=== PATIENT | female | born 1970 ===

== ENCOUNTER 2020-09-23 22:56 | Inpatient (IN) ==
[2020-09-23] MEDS ORDERED: cefTRIAXone 2 GM ADDV.VIAL 2 GM in NS 0.9% 100 ml BAG 100 ML IVPB ONE (23:54)
[2020-09-23] MEDS ORDERED: Lactated Ringers 1000 ml BAG IV.FLUID IV ONE (23:54)
[2020-09-24 00:12] LABS: Hematocrit 32 % (35-47); Hemoglobin 10.8 g/dL (12.0-16.0); Mean Corpuscular HGB Conc 34 g/dL (31-36); Mean Corpuscular Hemoglobin 30 pg (27-31); Mean Corpuscular Volume 89 fL (80-97); Mean Platelet Volume 7.5 fL (7.4-10.4); Platelet Count 493 10^3/uL (150-450); Red Blood Count 3.57 10^6 /uL (3.70-4.87); Red Cell Distribution Width 13 % (10-15); White Blood Count 27.2 10^3/uL (3.5-10.8)
[2020-09-24 00:23] LABS: INR 1.17 (0.86-1.15)
[2020-09-24 00:36] LABS: ALT 19 U/L (7-52); AST 17 U/L (13-39); Activated Partial Thrombo Time 20.2 seconds (26.0-38.0); Albumin 2.8 g/dL (3.2-5.2); Albumin/Globulin Ratio 0.6 (1-3); Alkaline Phosphatase 194 U/L (35-149); Anion Gap 10 mmol/L (2-11); Blood Urea Nitrogen 35 mg/dL (6-24); C Reactive Protein 336.87 mg/L (<8.01); CO2 Carbon Dioxide 22 mmol/L (22-32); Calcium 8.4 mg/dL (8.6-10.3); Chloride 92 mmol/L (101-111); EGFR African American 32.2 (>60); EGFR Non-African American 26.6 (>60); Globulin 4.5 g/dL (2-4); Glucose 346 mg/dL (70-100); Potassium 3.6 mmol/L (3.5-5.0); Sodium 124 mmol/L (135-145); Total Protein 7.3 g/dL (6.4-8.9)
[2020-09-24 00:44] LABS: Troponin I 0.05 ng/mL (<0.03)
[2020-09-24 01:23] LABS: Erythrocyte Sed Rate > 120 mm/Hr (0-19)
[2020-09-24 01:40] LABS: ABS Basophils 0.2 10^3/ul (0-0.2); ABS Eosinophils 0.1 10^3/ul (0-0.6); ABS Monocytes 1.7 10^3/ul (0-0.8); ABS Neutrophils 24.2 10^3/ul (1.5-7.7); Eosinophil % 0.4 %; Lymphocyte % 3.8 %
[2020-09-24] MEDS ORDERED: Vancomycin 1,250 MG in NS 0.9% 250 ml 250 ML IVPB ONE ×2 (05:40→12:30)
[2020-09-24] MEDS ORDERED: Vancomycin per Pharmacy 1 EA NOTE FOLLOW UP SCH (06:00)
[2020-09-24] MEDS ORDERED: Enoxaparin 40 MG/0.4 ML SYR SUBCUT SCH (06:00)
[2020-09-24] MEDS ORDERED: Heparin 5000 UNITS/ML 1 mL VIAL IV ONE (06:01)
[2020-09-24] MEDS ORDERED: Dextrose 50% Syringe 50 ml 25 GM/50 ML SYRINGE IV PUSH PRN (06:05)
[2020-09-24] MEDS ORDERED: Cefepime 2 GM IV - ED ONCE IV ONE (06:15)
[2020-09-24 06:55] LABS: Urine Appearance Cloudy; Urine Bilirubin Negative (Negative); Urine Blood 3+ (Negative); Urine Color Yellow; Urine Glucose 1+(50 mg/dL) (Negative); Urine Ketones Negative (Negative); Urine Nitrite Negative (Negative); Urine Protein Negative (Negative); Urine Specific Gravity 1.005 (1.002-1.030); Urine Urobilinogen Negative (Negative)
[2020-09-24 06:59] LABS: Urine Bacteria 1+ (Absent); Urine Red Blood Cell 2+(6-10/hpf) (Absent); Urine Squamous Epithelial Cell Present (Absent); Urine White Blood Cell 3+(>20/hpf) (Absent)
[2020-09-24] MEDS ORDERED: NS 0.9% 1000 ml BAG 1,000 ML IV SCH (07:30)
[2020-09-24 08:26] LABS: Blood Urea Nitrogen 22 mg/dL (6-24); CO2 Carbon Dioxide 18 mmol/L (22-32); Chloride 104 mmol/L (101-111); Potassium 2.8 mmol/L (3.5-5.0)
[2020-09-24 08:37] LABS: Troponin I 0.11 ng/mL (<0.03)
[2020-09-24 08:49] LABS: EGFR African American 31.6 (>60); EGFR Non-African American 26.1 (>60)
[2020-09-24 09:00] LABS: Sodium 104 mmol/L (135-145)
[2020-09-24] MEDS ORDERED: metroNIDAZOLE IV 500 MG/100ML 500 MG/100 ML BAG IVPB SCH (09:00)
[2020-09-24 09:01] LABS: Calcium 6.2 mg/dL (8.6-10.3)
[2020-09-24 09:05] LABS: Glucose 944 mg/dL (70-100)
[2020-09-24 09:32] LABS: Hematocrit 33 % (35-47); Hemoglobin 10.9 g/dL (12.0-16.0); Mean Corpuscular HGB Conc 33 g/dL (31-36); Mean Corpuscular Hemoglobin 30 pg (27-31); Mean Corpuscular Volume 90 fL (80-97); Mean Platelet Volume 7.2 fL (7.4-10.4); Platelet Count 508 10^3/uL (150-450); Red Blood Count 3.66 10^6 /uL (3.70-4.87); Red Cell Distribution Width 13 % (10-15); White Blood Count 20.5 10^3/uL (3.5-10.8)
[2020-09-24 09:50] LABS: Calcium 8.1 mg/dL (8.6-10.3); EGFR African American 53.4 (>60); EGFR Non-African American 44.1 (>60); Potassium 3.4 mmol/L (3.5-5.0)
[2020-09-24] MEDS ORDERED: NS 0.9% 1000 ml BAG 1,000 ML IV ONE (10:22)
[2020-09-24] MEDS: Morphine 2 MG/ML SYRINGE IV PRN (11:11)
[2020-09-24] MEDS: Clindamycin 600 MG/D5W BAG 600 MG/50 ML BAG IV SCH (11:13)
[2020-09-24] MEDS ORDERED: Naloxone 0.4 mg VIAL 0.4 mg/ml 1 ml VIAL IV PRN ×3 (12:20→16:20)
[2020-09-24] MEDS ORDERED: DiMENhydriNATE IV 50 mg/ml 1 ml VIAL IV PUSH PRN ×3 (12:20→16:20)
[2020-09-24] MEDS ORDERED: fentaNYL 100 mcg/2 ml 50 MCG/ML VIAL IV PRN ×2 (12:20→16:20)
[2020-09-24] MEDS ORDERED: Succinylcholine 200 mg VIAL 20 mg/ml 10 ml VIAL (200 mg) ONE (12:26)
[2020-09-24] MEDS ORDERED: Lidocaine 2% PF 5 ML VIAL ONE (12:26)
[2020-09-24] MEDS ORDERED: Midazolam 2 mg/2 ml VIAL 1 mg/ml 2 ml VIAL (2 mg) ONE (12:26)
[2020-09-24] MEDS ORDERED: fentaNYL 100 mcg/2 ml 50 MCG/ML VIAL ONE ×3 (12:26→15:51)
[2020-09-24] MEDS ORDERED: Propofol 10 MG/ML 20 ML BTL ONE (12:26)
[2020-09-24] MEDS ORDERED: Etomidate 20 mg/10 ml 2 MG/ML 10 ml VIAL ONE (12:28)
[2020-09-24] MEDS ORDERED: Dakins Solution 0.125% (1/4 STRENGTH) 473 ML BTL ONE (14:05)
[2020-09-24] MEDS ORDERED: Phenylephrine 40 mcg/mL 10mL (400mcg) SYRINGE ONE ×3 (14:07→14:58)
[2020-09-24] MEDS ORDERED: Ondansetron 4 mg VIAL 2 MG/ML 2 ml VIAL ONE ×2 (14:27→16:52)
[2020-09-24] MEDS ORDERED: Dexamethasone IV 4 MG/ML VIAL 1 ml VIAL ONE (14:27)
[2020-09-24] MEDS ORDERED: Bupivacaine 0.5% SDV PF 30ML VIAL ONE (15:02)
[2020-09-24] MEDS ORDERED: Lidocaine 2% PF 10 ML AMP ONE (15:02)
[2020-09-24] MEDS: fentaNYL 100 mcg/2 ml 50 MCG/ML VIAL IV PRN ×7 (15:31→16:50)
[2020-09-24] MEDS ORDERED: Acetaminophen IV 1 GM/100ML 100 ML IV ONE ×2 (16:15→16:23)
[2020-09-24] MEDS ORDERED: fentaNYL 100 mcg/2 ml 50 MCG/ML VIAL IV SLOW PU PRN (16:22)
[2020-09-24 16:48] LABS: Hematocrit 29 % (35-47); Hemoglobin 9.6 g/dL (12.0-16.0); Mean Corpuscular HGB Conc 33 g/dL (31-36); Mean Corpuscular Hemoglobin 30 pg (27-31); Mean Corpuscular Volume 89 fL (80-97); Mean Platelet Volume 7.5 fL (7.4-10.4); Platelet Count 440 10^3/uL (150-450); Red Blood Count 3.22 10^6 /uL (3.70-4.87); Red Cell Distribution Width 13 % (10-15); White Blood Count 20.6 10^3/uL (3.5-10.8)
[2020-09-24] MEDS ORDERED: Ondansetron 4 mg VIAL 2 MG/ML 2 ml VIAL IV ONE (16:55)
[2020-09-24] MEDS ORDERED: Vancomycin 1000 MG in NS 0.9% 250 ML IVPB ONE (17:00)
[2020-09-24 17:04] LABS: C Reactive Protein 282.82 mg/L (<8.01); Calcium 7.7 mg/dL (8.6-10.3); EGFR African American 81.9 (>60); EGFR Non-African American 67.7 (>60); Potassium 3.4 mmol/L (3.5-5.0)
[2020-09-24 17:13] LABS: ABS Eosinophils 0.2 10^3/ul (0-0.6); ABS Lymphocytes 0.9 10^3/ul (1.0-4.8); ABS Monocytes 0.7 10^3/ul (0-0.8); ABS Neutrophils 18.8 10^3/ul (1.5-7.7); Eosinophil % 0.9 %; Lymphocyte % 4.3 %
[2020-09-24] MEDS ORDERED: Cefepime 2 GM in Dextrose 2 GM/50 ML BAG IV SCH (18:00)
[2020-09-24] MEDS: Piperacillin/Tazobac ADVAN 3.375 GM in NS 0.9% 100 ml BAG 100 ML IV SCH (20:32)
[2020-09-24] MEDS ORDERED: NS 0.9% 100 ml BAG 100 ML ONE (20:55)
[2020-09-24] MEDS: KCL 10 MEQ/50 ML IVPREMIX 10 MEQ/50 ML BAG IV SCH (22:10)
[2020-09-24] MEDS ORDERED: Lactated Ringers 1000 ml BAG 500 ML IV SCH (23:00)
[2020-09-24] MEDS ORDERED: Potassium Chlor 20 meq TAB.ER PO ONE (23:50)
[2020-09-25] MEDS: Clindamycin 600 MG/D5W BAG 600 MG/50 ML BAG IV SCH ×3 (00:14→08:12)
[2020-09-25] MEDS: KCL 10 MEQ/50 ML IVPREMIX 10 MEQ/50 ML BAG IV SCH (00:32)
[2020-09-25] MEDS ORDERED: Vancomycin 1000 MG in NS 0.9% 250 ML IVPB ONE (01:00)
[2020-09-25] MEDS: Piperacillin/Tazobac ADVAN 3.375 GM in NS 0.9% 100 ml BAG 100 ML IV SCH (03:27)
[2020-09-25 07:07] LABS: ABS Lymphocytes 1.5 10^3/ul (1.0-4.8); ABS Monocytes 0.9 10^3/ul (0-0.8); ABS Neutrophils 16.8 10^3/ul (1.5-7.7); Hematocrit 27 % (35-47); Hemoglobin 9.1 g/dL (12.0-16.0); Lymphocyte % 7.8 %; Mean Corpuscular HGB Conc 34 g/dL (31-36); Mean Corpuscular Hemoglobin 31 pg (27-31); Mean Corpuscular Volume 90 fL (80-97); Mean Platelet Volume 7.7 fL (7.4-10.4); Platelet Count 458 10^3/uL (150-450); Red Blood Count 2.99 10^6 /uL (3.70-4.87); Red Cell Distribution Width 13 % (10-15); White Blood Count 19.3 10^3/uL (3.5-10.8)
[2020-09-25 07:20] LABS: Albumin 2.4 g/dL (3.2-5.2); Albumin/Globulin Ratio 0.6 (1-3); Calcium 7.7 mg/dL (8.6-10.3); EGFR African American 76.9 (>60); EGFR Non-African American 63.6 (>60); Globulin 3.9 g/dL (2-4); Phosphorus 3.2 mg/dL (2.5-5.0); Potassium 4.6 mmol/L (3.5-5.0); Total Bilirubin 0.2 mg/dL (0.2-1.0); Total Protein 6.3 g/dL (6.4-8.9)
[2020-09-25] MEDS ORDERED: Vancomycin Trough Check NOTE FOLLOW UP ONE (08:30)
[2020-09-25 10:03] LABS: EGFR African American 81.9 (>60); EGFR Non-African American 67.7 (>60)
[2020-09-25] MEDS: Morphine 2 MG/ML SYRINGE IV PRN (10:31)
[2020-09-25 11:28] VITALS: BP 143/75
[2020-09-25] MEDS ORDERED: Vancomycin Random Level NOTE FOLLOW UP ONE (14:00)
== END 2020-09-25 11:00 | disposition short-term general hospital (02) | DRG 344 ==
LOC: ED 22:56 → SDS 09-24 12:45 → ED 09-24 12:45 → SDS 09-24 13:29 → ICU 09-24 17:59
PROVIDERS: ADMIT Internal Medicine; ATTEND Internal Medicine
PROC: O.GEI&D (2020-09-24 13:30)